=== PATIENT | female | born 1990 | race Two or more races ===

== ENCOUNTER 2022-05-18 10:34 | Emergency (ER) | payer MEDICAID ==
[~2022-05-18] VITALS: Ht 165.1 cm; Wt 70.1 kg
[2022-05-18 10:55] VITALS: BP 139/79
[2022-05-18] MEDS ORDERED: IBUP600T28 PO (15:26)
[2022-05-18] MEDS ORDERED: IBUPROFEN 600 MG TAB PO ONE (15:30)
== END 2022-05-18 15:55 | disposition home or self-care (01) ==
LOC: ER 10:34
DX: S63.501A Unspecified sprain of right wrist, initial encounter (principal); Z79.1 Long term (current) use of non-steroidal anti-inflammatories (NSAID); Z88.5 Allergy status to narcotic agent; Z88.8 Allergy status to other drugs, medicaments and biological substances; W01.0XXA Fall on same level from slipping, tripping and stumbling without subsequent striking against object, initial encounter; Y93.89 Activity, other specified; Y92.89 Other specified places as the place of occurrence of the external cause; Y99.8 Other external cause status
CPT/HCPCS: 72100; 73110